=== PATIENT | female | born 1955 | race African-American/Black ===

== ENCOUNTER 2024-05-14 13:18 | Outpatient (CLI) | payer OTHER | END 2024-05-14 13:19 | disposition home or self-care (01) | LOC: CSHMAMMO 13:18 | PROVIDERS: ATTEND Internal Medicine | DX: Z12.31 Encounter for screening mammogram for malignant neoplasm of breast (principal); Z80.3 Family history of malignant neoplasm of breast; Z91.89 Other specified personal risk factors, not elsewhere classified | CPT/HCPCS: 77063; 77067 ==